=== PATIENT | male | born 1990 | race Caucasian/White ===

== ENCOUNTER 2020-03-21 14:15 | Emergency (ER) | payer SELFPAY ==
--- NOTE | 2020-03-21 14:19 | ED.GENADULT ---
HPI - General Adult General Chief complaint: Unspecified Stated complaint: Chest Pain Time Seen by Provider: 03/21/20 14:19 Source: patient Mode of arrival: ambulatory Limitations: no limitations History of Present Illness HPI narrative: 29-year-old male patient presents to the [facility] with complaints of burning midsternal chest pain that goes up to the neck. Patient states he has had ulcers to the stomach before in the past. Patient states about 5 days ago he did have some steak, whiskey, potatoes, butter and a high-fat food and states that shortly after he started getting the chest burning pain. Patient states it hurts worse when he lays down feels that it does go up. Patient states it hurts to even drink water. Denies any vomiting. Denies any fevers, body aches or chills. Denies any shortness of breath. Patient also complaining of left-sided dental pain that started about the same time. Related Data Allergies Allergy/AdvReac Type Severity Reaction Status Date / Time No Known Allergies Allergy Verified 04/18/18 16:14 Review of Systems Review of Systems: Narrative: CONSTITUTIONAL: Denies fever, chills, or sweats. EYES: Denies visual changes, redness, or discharge. ENT: Denies rhinorrhea, congestion, sore throat, or otalgia. Positive left-sided dental pain CARDIOVASCULAR: Positive epigastric chest pain, denies palpitations, or edema. RESPIRATORY: Denies cough or dyspnea. GASTROINTESTINAL: Denies abdominal pain, nausea, vomiting, or diarrhea. GENITOURINARY: Denies dysuria or hematuria. SKIN: Denies rash or itching. MUSCULOSKELETAL: Denies back pain, joint pain, or myalgia. NEUROLOGIC: Denies headache, numbness, or weakness. PSYCHIATRIC: Denies anxiety or depression. [facility] Past Medical History Medical History (Updated 03/21/20 @ 14:43 by BARB Gamboa) ADD (attention deficit disorder) Anxiety Depression Surgical History Surgical History (Updated 03/21/20 @ 14:21 by BARB Gamboa) [place] teeth removed Family History Family History Mother Patient's mother is in good health Father Patient's father is in good health Sibling Patient's sister is in good health Patient's brother is in good health Social History Social History Smoking status: Former smoker Second hand tobacco smoke exposure: No Alcohol intake: current Comments At the time of my signature I agree with nursing past medical history, surgical, social, and family history. There is no relevant family history pertinent to the presenting complaint. Exam Narrative: Exam Narrative: GENERAL: Well-appearing, well-nourished, and in no acute distress. HEAD: Normocephalic, atraumatic. EYES: PERRLA and EOMI. ENT: Nares clear, no rhinorrhea or epistaxis. Mucous membranes moist. Patient does have some swelling and erythema around the back molar on the bottom left side. There is tenderness noted but no obvious abscess or drainage noted at this time. NECK: Supple. No lymphadenopathy CHEST: Clear to auscultation. No respiratory distress. Patient able talk in clear complete sentences. No tripoding noted. HEART: Regular rate and rhythm. No murmur heard. Normal peripheral pulses. ABDOMEN: Soft, nontender, nondistended, normal active bowel sounds. EXTREMITIES: Normal range of motion. No edema. SKIN: Warm, dry, no rash. NEURO: No focal deficits. Alert and oriented x3. Course Vital Signs Vital signs: Vital Signs Temperature 37.1 C 03/21/20 14:26 Pulse Rate 103 H 03/21/20 14:26 Respiratory Rate 16 03/21/20 14:26 Blood Pressure 147/94 H 03/21/20 14:26 Pulse Oximetry 99 03/21/20 14:26 Temperature 37.1 C 03/21/20 14:26 Pulse Rate 103 H 03/21/20 14:26 Respiratory Rate 16 03/21/20 14:26 Blood Pressure 147/94 H 03/21/20 14:26 Pulse Oximetry 99 03/21/20 14:26 Vital signs reviewed. The patient jackson
[2020-03-21 14:26] VITALS: BP 147/94; PULSE 103; RESP 16; TEMP 37.1; O2SAT 99
== END 2020-03-21 14:53 | disposition home or self-care (01) ==
PROVIDERS: Emergency Provider Nurse Practitioner Family
DX: K21.9 Gastro-esophageal reflux disease without esophagitis (principal); K04.7 Periapical abscess without sinus; Z87.891 Personal history of nicotine dependence
CPT/HCPCS: 99213; G0463

== ENCOUNTER 2021-06-25 10:12 | Emergency (ER) | payer SELFPAY ==
--- NOTE | 2021-06-25 10:15 | ED.SKABFB ---
HPI - Skin/Abscess/Foreign Bdy General Chief complaint: Skin/Abscess/Foreign Body Stated complaint: Infection on finger Time Seen by Provider: 06/25/21 10:22 Source: patient, RN notes reviewed and old records reviewed Mode of arrival: ambulatory Limitations: no limitations History of Present Illness HPI narrative: 31-year-old male presents to the [facility] with a left ring finger infection to the dorsal aspect. Patient states that on he cut off his wedding band with a air grinder. States it became infected he popped a blister and has applied liquid bandage to the area. Yellow sloughy material noted. Redness to the surrounding tissue. No streaking of the redness. Not circumferential. Capillary refill and sensation intact distal to injury. MD complaint: abscess/boil Related Data Allergies Allergy/AdvReac Type Severity Reaction Status Date / Time No Known Allergies Allergy Verified 06/25/21 10:29 Review of Systems Review of Systems: All systems reviewed & are unremarkable except as noted in HPI and below Constitutional: Constitutional: Reports no additional constitutional complaints, Denies chills and Denies fever(s) Eyes: Eyes: Reports no additional eye complaints ENT: Reports system reviewed and no additional complaints, except as documented Cardiovascular: Cardiovascular: Reports no additional cardiovascular complaints Respiratory: Respiratory: Reports no additional respiratory complaints Musculoskeletal: Musculoskeletal: Reports no additional musculoskeletal complaints Integumentary/Breasts: Skin/Breast: Reports as per HPI and Reports erythema (Dorsal aspect left ring finger) Neurologic: Reports system reviewed and no additional complaints, except as documented Psychiatric: Psychiatric: Reports no additional psychiatric complaints Allergic/Immunologic: Allergic/Immunologic: Reports no additional allergic/immunologic complaints [facility] Past Medical History Medical History ADD (attention deficit disorder) Anxiety Depression Surgical History Surgical History [place] teeth removed Family History Family History Mother Patient's mother is in good health Father Patient's father is in good health Sibling Patient's sister is in good health Patient's brother is in good health Social History Social History Smoking status: Former smoker Second hand tobacco smoke exposure: No Alcohol intake: current Comments At the time of my signature, I reviewed and agree with the nursing past medical, surgical, social, and family history. There is no relevant family history pertinent to the patient complaint. Exam Const: General: healthy appearing, no acute distress and alert Nutritional Appearance: well nourished Orientation/consciousness: patient oriented x3 Limitations: no limitations HENMT: Head: normal to inspection Eyes: Pupils: Equal, round and reactive pupils present Neck: Neck: normal visual inspection, no lymphadenopathy and no meningeal signs Chest: Chest palpation & inspection: normal inspection of the chest Resp: Effort & Inspection: normal respiratory effort Cardio: Rate: regular rate Back/Spine/Pelvis: Back: no CVA tenderness Skin: General skin exam: normal color Rashes: no rashes Wounds: wounds noted left dorsal 4th finger bed yellow, without odor and with surrounding erythema; no drainage Neuro: General: patient oriented x3, moves all extremities, no meningeal signs and no focal motor deficits Speech: normal speech Gait exam (Neuro): Normal gait present Extrem: General: normal to inspection Psych: Appearance: grossly normal and well kempt Mental Status: mental status grossly normal Affect: normal affect Attitude: cooperative Thought content: Yes Normal thought content present
[2021-06-25 10:24] VITALS: BP 134/93; PULSE 81; RESP 16; TEMP 36.3; O2SAT 97
== END 2021-06-25 10:36 | disposition home or self-care (01) ==
PROVIDERS: Emergency Provider Nurse Practitioner
DX: L03.012 Cellulitis of left finger (principal); Z87.891 Personal history of nicotine dependence
CPT/HCPCS: 99213; G0463

== ENCOUNTER 2021-10-08 08:50 | Emergency (ER) | payer MEDICAID, SELFPAY ==
--- NOTE | ~2021-10-08 | XR_ITS ---
EXAMINATION: XR hand LT min 3V INDICATION: Left hand pain TECHNIQUE: Three views of the left hand are obtained. COMPARISON: None available FINDINGS: There is no fracture, dislocation, or subluxation. The bones, soft tissues, and joint space s are normal. IMPRESSION: 1. No acute osseous abnormality. Reviewed, dictated and finalized at location A.
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
--- NOTE | ~2021-10-08 | XR_ITS ---
EXAMINATION: XR tibia fibula LT 2V DATE: 10/08/2021 10:52 INDICATION: Left lower leg pain post fall from height TECHNIQUE: Anteroposterior and lateral views of the left tibia and fibula were obtained. COMPARISON: None. FINDINGS: Alignment is normal. No fracture. Joint spaces are normal. Soft tissues are unremarkable. No left ank le joint effusion. IMPRESSION: 1. Negative left tibia/fibula radiographs. Reviewed, dictated and finalized at location A.
--- NOTE | ~2021-10-08 | XR_ITS ---
EXAMINATION: XR femur LT min 2V INDICATION: Left leg pain after fall TECHNIQUE: Two views of the left femur are obtained on four radiographs COMPARISON: None available FINDINGS: There is no fracture, dislocation, or subluxation. The bones, soft tissues, and joint space s are normal. IMPRESSION: 1. No acute osseous abnormality. Reviewed, dictated and finalized at location A.
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
[2021-10-08 08:57] VITALS: BP 153/94; PULSE 93; RESP 16; TEMP 36.2; O2SAT 100
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
[2021-10-08 09:48] LABS: Basophils Percent Auto 0.6 % (0.2-1.2); Eosinophils Absolute Auto 0.2 K/mm3 (0-0.3); Eosinophils Percent Auto 3.3 % (0-4.4); Hemoglobin 15.9 g/dL (14.0-18.0); Immature Granulocyte Absolute 0.02 K/mm3 (0.00-0.031); Immature Granulocyte Percent A 0.3 % (0-0.5); Lymphocytes Absolute Auto 0.96 K/mm3 (0.9-3.2); Lymphocytes Percent Auto 15.2 % (18.3-44.2); Mean Corpuscular HGB Conc 35.3 g/dl (32-36); Mean Corpuscular Hemoglobin 35.7 pg (26-34); Mean Corpuscular Volume 101.1 fl (80-100); Monocytes Absolute Auto 0.8 K/mm3 (0.1-0.6); Monocytes Percent Auto 13.3 % (2.6-8.5); Neutrophils Absolute Auto 4.2 K/mm3 (1.3-6.7); Neutrophils Percent Auto 67.3 % (45.5-73.1); Platelet Count Result 203 k/mm3 (150-375); Red Blood Count 4.45 M/mm3 (4.6-6.20); White Blood Count 6.3 K/mm3 (4.5-10.0)
[2021-10-08 09:58] LABS: Alanine Aminotransferase 67 U/L (4-50); Albumin Level 4.5 g/dL (3.5-5.1); Alkaline Phosphatase 83 U/L (38-126); Anion Gap 6 mmol/L (8-16); Aspartate Amino Transferase 58 U/L (17-59); Bilirubin,Total 0.9 mg/dL (0.2-1.3); Blood Urea Nitrogen 14 mg/dL (9-20); Calcium 9.3 mg/dL (8.4-10.2); Carbon Dioxide 28 mmol/L (22-30); Chloride 103 mmol/L (98-107); Estimated CRCL calculation 111 ml/min; Estimated Glomerular Filt Rate > 60; Glucose 95 mg/dL (65-110); Lipase 114 U/L (23-300); Potassium 4.5 mmol/L (3.4-5.0); Sodium 137 mmol/L (137-145)
[2021-10-08 10:04] LABS: Prothrombin Time 12.7 Seconds (11.1-14.7)
[2021-10-08 10:05] LABS: Partial Thromboplastin Time 26.7 SECONDS (22.3-36.8)
[2021-10-08] MEDS: MORPHINE SULFATE (*CRX) 4 MG/ML INJ IV PUSH (10:27)
[2021-10-08] MEDS: ONDANSETRON INJ 4 MG/2 ML VIAL IV PUSH (10:58)
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
== END 2021-10-08 12:32 | disposition short-term general hospital (02) ==
PROVIDERS: Physician Assistant; Emergency Provider Emergency Medicine
DX: S12.190A Other displaced fracture of second cervical vertebra, initial encounter for closed fracture (principal); S12.290A Other displaced fracture of third cervical vertebra, initial encounter for closed fracture; S02.113A Unspecified occipital condyle fracture, initial encounter for closed fracture; F17.220 Nicotine dependence, chewing tobacco, uncomplicated; M47.816 Spondylosis without myelopathy or radiculopathy, lumbar region; M47.814 Spondylosis without myelopathy or radiculopathy, thoracic region; W14.XXXA Fall from tree, initial encounter
CPT/HCPCS: 36415; 70450; 71260; 72125; 72129; 72132; 73130; 73552; 73590; 74177; 80053; 83690; 85025; 85610; 85730; 96365; 96375; 99285; J0131; J2270; J2405; Q9967

== ENCOUNTER 2021-11-08 22:02 | Emergency (ER) | payer BC, SELFPAY ==
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
[2021-11-08 22:19] VITALS: BP 144/95; PULSE 107; RESP 16; TEMP 36.6; O2SAT 100
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
[2021-11-09] MEDS: ACETAMINOPHEN 500 MG TABLET 1000 MG PO (02:15)
[2021-11-09] MEDS: CYCLOBENZAPRINE HCL 10 MG TABLET PO (02:17)
[2021-11-09] MEDS: IBUPROFEN 400 MG TABLET 800 MG PO (02:17)
[2021-11-09 02:29] VITALS: BP 145/69; PULSE 87; RESP 20; TEMP 36; O2SAT 100
[2021-11-09] MEDS: TETANUS,DIPHTHERIA,AC PERTUSSIS ADULT (0.5 ML) BOOSTRIX IM (03:02)
[2021-11-09 03:11] VITALS: BP 134/93; PULSE 74; RESP 18; O2SAT 99
== END 2021-11-09 03:16 | disposition home or self-care (01) ==
PROVIDERS: Emergency Provider Emergency Medicine
DX: S19.9XXA Unspecified injury of neck, initial encounter (principal); S09.90XA Unspecified injury of head, initial encounter; M79.652 Pain in left thigh; Z23 Encounter for immunization; Z98.1 Arthrodesis status; V49.40XA Driver injured in collision with unspecified motor vehicles in traffic accident, initial encounter
CPT/HCPCS: 70450; 72125; 73552; 90471; 90715; 99284; A9270

== ENCOUNTER 2021-11-26 14:31 | Outpatient (CLI) | payer OTHER, BC, SELFPAY ==
--- NOTE | 2021-11-26 | ECHO_ITS ---
Patient Info Name: Wang Doherty Age: 31 years : 1990 Gender: Male Ht: 67 in Wt: 160 lbs BSA: 1.86 m2 HR: 99 bpm BP: 143 / 94 mmHg Heart Rhythm: Tachycardia Technical Quality: Fair Exam Date: 11/26/2021 2:50 PM Exam Location: [facility] Pul[facility] Patient Status: Outpatient Admit Date: 11/26/2021 Staff Ordering Physician: TristonRoseann Dough Mixing Machine Operator: Bing White RDCS Attending Provider: Roseann Barnes Exam Type: CA echo doppler color flow Study Info Indications - Tachycardia, unspecified Complete two-dimensional, color flow and Doppler transthoracic echocardiogram is performed. Summary 1. Complete two-dimensional, color flow and Doppler transthoracic echocardiogram is performed. 2. Left ventricular chamber dimension is normal. 3. Left ventricular systolic function is normal, estimated at 60-65%. 4. The left ventricular diastolic function is grade II diastolic dysfunction. 5. E/e' 10 is mildly elevated. 6. There is trace tricuspid valve regurgitation. 7. No pulmonary hypertension, estimated pulmonary arterial systolic pressure is 22 mmHg. 8. There is trace pulmonic regurgitation. Left Ventricle E/e' 10 is mildly elevated. Left ventricular chamber dimension is normal. Left ventricular systolic function is normal, estimated at 60-65%. The left ventricular diastolic function is grade II diastolic dysfunction. Right Ventricle Right ventricular systolic function is normal and with normal TAPSE 2.1 cm. Right ventricular chamber dimension is normal. Left Atria Left atrial chamber dimension is normal. Right Atria Right atrial chamber dimension is normal. Aortic Valve The aortic valve is trileaflet. There is no aortic valve stenosis. There is no aortic valve regurgitation. Pulmonic Valve There is trace pulmonic regurgitation. Mitral Valve There is no mitral valve stenosis. There is no mitral valve regurgitation. Tricuspid Valve There is trace tricuspid valve regurgitation. No pulmonary hypertension, estimated pulmonary arterial systolic pressure is 22 mmHg. Pericardium/Pleural There is no pericardial effusion. Inferior Vena Cava Normal inferior vena cava with >50% collapse upon inspiration consistent with normal right atrial pressure, 5 mmHg. Aorta The aortic root size at the sinus of Valsalva is normal. Left Ventricular Outflow Tract Name Value Normal LVOT 2D LVOT Diameter 2.0 cm LVOT Doppler LVOT Peak Gradient 3 mmHg LVOT Mean Gradient 1 mmHg LVOT VTI 13 cm LVOT VTI/AV VTI Ratio 0.9 LVOT Stroke Volume 42 ml LVOT CO 3.4 l/min LVOT CI 1.8 l/min/m2 Pulmonic Valve Name Value Normal RVOT Doppler
== END 2021-11-26 14:32 | disposition home or self-care (01) ==
PROVIDERS: Visit Provider Physician Assistant
DX: R00.0 Tachycardia, unspecified (principal)
CPT/HCPCS: 93306

== ENCOUNTER 2022-02-25 07:49 | Emergency (ER) | payer BC, SELFPAY ==
--- NOTE | ~2022-02-25 | CT_ITS ---
EXAMINATION: CT cervical spine wo con DATE: 02/25/2022 08:53 INDICATION: Right upper limb numbness and weakness and pain. TECHNIQUE: Computed tomography (CT) of the cervical spine was performed without intravenous contrast. Automated exposure control and iterative reconstruction technique were employed. The dose-length pro duct was 373.90 mGy-cm. COMPARISON: CT cervical spine 11/09/2021, 10/08/21, 04/18/2018 FINDINGS: There is kyphosis of cervical spine. There is an old healed fracture of left occipital cond yle. There is a healed fracture deformity of C3 vertebral body with mild height loss. There is a heal ing fracture of C3 spinous process. There is a healing fracture of left C4 lamina. Note that the frac ture levels were incorrectly numbered on prior reports. There is mildly decreased disc height at C3-C 4. There is mild chronic anterior wedging of T2. There are changes of posterior fusion procedure from C2 to C4 with screws in the lateral masses and pedicles. The following disc levels are specifically discussed: C2-C3: There is no uncovertebral joint osteoarthritis. There is mild bilateral facet joint osteoarthr itis. There is no neural foraminal stenosis. There is no central canal stenosis. C3-C4: There is mild bilateral uncovertebral joint osteoarthritis. There is no facet joint osteoarthr itis. There is no neural foraminal stenosis. There is no central canal stenosis. C4-C5: There is no uncovertebral joint osteoarthritis. There is no facet joint osteoarthritis. There is no neural foraminal stenosis. There is no central canal stenosis. C5-C6: There is no uncovertebral joint osteoarthritis. There is no facet joint osteoarthritis. There is no neural foraminal stenosis. There is no central canal stenosis. C6-C7: There is no uncovertebral joint osteoarthritis. There is no facet joint osteoarthritis. There is no neural foraminal stenosis. There is no central canal stenosis. C7-T1: There is no uncovertebral joint osteoarthritis. There is moderate bilateral facet joint osteoa rthritis. There is no neural foraminal stenosis. There is no central canal stenosis. IMPRESSION: 1. Posterior fusion procedure from C2 to C4. 2. Healing fractures of C3 spinous process and C4 left lamina again seen. 3. Mild cervical spondylosis. Reviewed, dictated and finalized at location A.
[2022-02-25 08:00] VITALS: BP 129/90; PULSE 73; RESP 16; TEMP 36.5; O2SAT 100
[2022-02-25] MEDS: HYDROmorphone HCL INJ (*CRX) 1 MG/ML SYR IM (09:02)
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
[2022-02-25 11:30] VITALS: BP 122/78; PULSE 64; RESP 16; O2SAT 98
== END 2022-02-25 11:30 | disposition home or self-care (01) ==
PROVIDERS: Emergency Provider Emergency Medicine; PCP Physician Assistant
DX: G56.91 Unspecified mononeuropathy of right upper limb (principal); F98.8 Other specified behavioral and emotional disorders with onset usually occurring in childhood and adolescence; F41.9 Anxiety disorder, unspecified; F32.A Depression, unspecified; F17.220 Nicotine dependence, chewing tobacco, uncomplicated
CPT/HCPCS: 72125; 96372; 99284; J1170

== ENCOUNTER 2022-04-01 12:26 | Emergency (ER) | payer BC, SELFPAY ==
--- NOTE | ~2022-04-01 | XR_ITS ---
EXAMINATION: XR finger 1st RT min 2V DATE: 04/01/2022 13:17 INDICATION: Circular saw accident to the left thumb TECHNIQUE: Dorsal palmar, lateral and 2 oblique views of the left first digit were obtained COMPARISON: None FINDINGS: There is bandaging material about the left thumb which limits assessment of fine bone and soft tissue detail. Bone alignment is normal. No evident fracture or cortical disruption. Joint spaces are saji l. Soft tissues appear unremarkable. IMPRESSION: 1. No osseous abnormality. Assessment of fine bone and soft tissue detail is however somewhat limited by overlying bandaging material. Reviewed, dictated and finalized at location A. IMPRESSION: 1. No osseous abnormality. Assessment of fine bone and soft tissue detail is ho wever somewhat limited by overlying bandaging material.
[2022-04-01 12:59] VITALS: BP 110/86; PULSE 86; RESP 16; TEMP 36.8; O2SAT 100
--- NOTE | 2022-04-01 13:11 | ED.WOUNDLAC ---
HPI - Wound/Laceration General Chief Complaint: Wound/Laceration <MIA Menendez Last Filed: 04/01/22 18:12> Stated Complaint: hand vs circular saw <MIA Menendez Last Filed: 04/01/22 18:12> Time Seen by Provider: 04/01/22 13:07 <MIA Menendez Last Filed: 04/01/22 18:12> History of Present Illness HPI narrative: Patient is a healthy 31-year-old [id number] male here for evaluation of a laceration to his left thumb sustained from a circular saw. He states he was using a saw to cut an object on the table when he lost control of the saw and accidentally sliced his thumb. States that he wrapped it up in a T-shirt and drove directly to the ED. He is not sure when his last tetanus shot was. <MIA Menendez Last Filed: 04/01/22 18:12> Related Data Home Medications: Home Medications Medication Instructions Recorded Confirmed baclofen 10 mg tablet mg 02/25/22 02/25/22 carvedilol 6.25 mg tablet mg 02/25/22 ibuprofen 800 mg tablet mg 02/25/22 zolpidem 5 mg tablet mg 02/25/22 <MIA Menendez Last Filed: 04/01/22 18:12> Allergies/Adverse Reactions: Allergies Allergy/AdvReac Type Severity Reaction Status Date / Time No Known Allergies Allergy Verified 04/01/22 13:01 <MIA Menendez Last Filed: 04/01/22 18:12> Review of Systems Review of Systems: Gen.: Denies fevers or chills Eyes: Denies eye pain or visual change ENT: Denies congestion Respiratory: Denies shortness of breath or cough CV: Denies chest pain or palpitations GI: Denies abdominal pain nausea, emesis or diarrhea denies burning, urgency, frequency or hematuria Musculoskeletal: Denies back pain or muscle pain Neuro: Denies numbness, tingling, weakness or focal weakness Skin: Reports laceration. Except as documented, all other systems reviewed and negative <Skylar Phillip PA-C - Last Filed: 04/01/22 18:12> [facility] Past Medical History Medical History: Medical History ADD (attention deficit disorder) Anxiety Depression <Skylar Phillip PA-C - Last Filed: 04/01/22 18:12> Surgical History Surgical History: Surgical History [place] teeth removed <Skylar Phillip PA-C - Last Filed: 04/01/22 18:12> Family History Family History: Family History Mother Patient's mother is in good health Father Patient's father is in good health Sibling Patient's sister is in good health Patient's brother is in good health <Skylar Phillip PA-C - Last Filed: 04/01/22 18:12> Social History Social History: Social History (Updated 10/08/21 @ 09:35 by Skylar Baptiste PA-C) Smoking status: Current every day smoker Tobacco type: smokeless tobacco Smokeless tobacco user: chewing tobacco Alcohol intake: current <Skylar Phillip PA-C - Last Filed: 04/01/22 18:12> Exam Narrative: APPEARANCE: Well appearing, no pain in distress, well-nourished. Head: Normocephalic and atraumatic. EYES: PERRLA/EOMI, conjunctivae clear NOSE: No nasal drainage EARS: External ear normal in appearance THROAT: Oropharynx is clear. Mucous membranes are moist. NECK: Supple. No adenopathy, no masses. RESPIRATORY: Airway patent, respirations nonlabored. Clear to auscultation bilaterally, no rales, rhonchi, wheezing. CARDIOVASCULAR: Regular rate and rhythm without murmurs, rubs, or gallops. ABDOMINAL: Normoactive bowel sounds. Soft, nontender, nondistended. No rebound tenderness or guarding. MUSCULOSKELETAL: Full range of motion in hand. Extremities are warm and well-perfused. Moves all extremities well. No edema. NEURO: Normal speech. No focal neurologic deficits. SKIN: Superficial laceration to the the palmar aspect of the left
[2022-04-01] MEDS: TETANUS,DIPHTHERIA,AC PERTUSSIS ADULT (0.5 ML) BOOSTRIX IM (13:28)
== END 2022-04-01 14:40 | disposition home or self-care (01) ==
PROVIDERS: Emergency Provider Emergency Medicine; PCP Physician Assistant
DX: S61.012A Laceration without foreign body of left thumb without damage to nail, initial encounter (principal); Z23 Encounter for immunization; F17.220 Nicotine dependence, chewing tobacco, uncomplicated; W31.2XXA Contact with powered woodworking and forming machines, initial encounter
CPT/HCPCS: 12001; 73140; 90471; 90715; 99283